=== PATIENT | male | born 1975 | race Caucasian/White ===

== ENCOUNTER 2018-08-21 22:14 | Emergency (ER) | payer BC ==
[~2018-08-21] VITALS: Ht 190.5 cm; Wt 95.2 kg
[~2018-08-21 22:14] MED LIST: ALBU90OI INH; CEPH500 PO; CLIN300 PO; CYCL10 PO; HYDACE25S PR; HYDACE5; HYDACE5 PO; HYDACE7.5L PO; HYDGUAL120 PO; HYDMOR4 PO; IBUP600 PO; LEVFLO500 PO; META400; NAPR500; OMEP20ER PO; POTA10T PO; PROM25 PO; RANI150 PO; RXCLIN PO; RXCODACESY PO; RXHYDACE PO; SULTRIDS PO
[2018-08-22] MEDS ORDERED: IBUP800 PO (00:45)
== END 2018-08-22 01:48 | disposition home or self-care (01) ==
LOC: ER 22:14
DX: S02.2XXA Fracture of nasal bones, initial encounter for closed fracture (principal); S02.32XA Fracture of orbital floor, left side, initial encounter for closed fracture; Y04.2XXA Assault by strike against or bumped into by another person, initial encounter
CPT/HCPCS: 70450; 70486; 99284-25

== ENCOUNTER → 2024-03-30 | Outpatient (CLI) | payer OTHER ==
[~2024-03-30] MED LIST changes: +IBUP800 PO
== END | disposition home or self-care (01) ==
LOC: LAB SHORT 17:04 → LAB 17:04
DX: L02.429 Furuncle of limb, unspecified (principal)
CPT/HCPCS: 87070; 87075; 87077; 87147; 87186; 87205

== ENCOUNTER 2025-04-14 06:58 | Emergency (ER) | payer OTHER ==
[~2025-04-14] VITALS: Ht 180.3 cm; Wt 83.9 kg
[2025-04-14] MEDS ORDERED: Ketorolac Tromethamine 15mg Vial IM ONE (08:15)
[2025-04-14] MEDS ORDERED: Amoxicillin500 MG PO (08:18)
[2025-04-14 08:32] VITALS: BP 155/100
== END 2025-04-14 08:36 | disposition home or self-care (01) ==
LOC: ER 06:58
DX: J02.0 Streptococcal pharyngitis (principal)
CPT/HCPCS: 87430; 96372; 99283-25; J1885